=== PATIENT | female | born 1945 | race Caucasian/White ===

== ENCOUNTER → 2017-01-04 | Outpatient (CLI) | payer MEDICARE ==
--- NOTE | 2017-01-04 13:24 | REPMRS ---
Patient History The patient states she had a clinical breast exam in 09/2016. Patient is postmenopausal. Family history of colorectal cancer in paternal uncle at age 50 or over. Reductions of both breasts, 2004. Digital Woman Screen Mammo: January 04, 2017 - Exam #: [id number] Bilateral CC and MLO view(s) were taken. Technologist: Gladys Adams, Technologist Prior study comparison: November 13, 2015, digital woman screen mammo performed at [facility] to [facility]. November 16, 2014, digital woman screen mammo performed at [facility] to [facility]. FINDINGS: There are scattered fibroglandular densities. There is a fairly symmetric fibroglandular pattern in both breasts. There has been no interval development of masses, areas of architectural distortion or clusters of microcalcifications typical of malignancy. ASSESSMENT: BI-RADS/ACR category 2 mammogram. Benign finding(s). Recommendation Routine screening mammogram of both breasts in 1 year (for women over age 40). This mammogram was interpreted with the aid of an FDA-approved computer-aided dectection system. Electronically Signed By: Jorge Curtis MD 01/04/17 [id number]
== END ==
LOC: M WHC 11:10
PROVIDERS: ATTEND Obstetrics & Gynecology
DX: Z12.31 Encounter for screening mammogram for malignant neoplasm of breast (principal)

== ENCOUNTER 2017-10-01 06:43 | Day surgery (SDC) | payer MEDICARE ==
[2017-10-01] MEDS ORDERED: LIDOCAINE 2% INJ 100 MG/5 ML SDV (FOR ANES.) As Ordered (07:00)
[2017-10-01] MEDS ORDERED: PROPOFOL 200 MG/20 ML VIAL As Ordered ×2 (07:00→07:46)
== END 2017-10-01 08:12 | disposition home or self-care (01) ==
LOC: M OPP 06:43
DX: Z12.11 Encounter for screening for malignant neoplasm of colon (principal); Z80.0 Family history of malignant neoplasm of digestive organs; F32.9 Major depressive disorder, single episode, unspecified; F41.9 Anxiety disorder, unspecified; E78.00 Pure hypercholesterolemia, unspecified; H40.9 Unspecified glaucoma; G47.30 Sleep apnea, unspecified; Z99.89 Dependence on other enabling machines and devices; Z41.1 Encounter for cosmetic surgery; Z78.0 Asymptomatic menopausal state
CPT/HCPCS: G0105

== ENCOUNTER → 2018-03-10 | Outpatient (REF) | payer MEDICARE | LOC: M LAB REF 16:09 | DX: N39.0 Urinary tract infection, site not specified (principal) | CPT/HCPCS: 87186 ==

== ENCOUNTER → 2018-04-12 | Outpatient (REF) | payer MEDICARE | LOC: M LAB REF 11:10 | DX: R19.7 Diarrhea, unspecified (principal) | CPT/HCPCS: 87507 ==

== ENCOUNTER → 2018-05-11 | Outpatient (REF) | payer MEDICARE | LOC: M LAB REF 12:09 | DX: R30.0 Dysuria (principal) | CPT/HCPCS: 87086 ==

== ENCOUNTER → 2018-07-08 | Outpatient (REF) | payer MEDICARE | LOC: M LAB REF 15:31 | DX: N39.0 Urinary tract infection, site not specified (principal) | CPT/HCPCS: 87086 ==

== ENCOUNTER → 2019-02-27 | Outpatient (CLI) | payer MEDICARE ==
[~2019-02-27] MED LIST: ATOR1TAB19 PO; CALCTAB93 PO; CO Q100C10 PO; FISH100049 PO; LATA0.0013 OU; LEXA1TAB PO; LUTE6CAP2 PO
--- NOTE | 2019-02-27 15:36 | REPMRS ---
Patient History The patient states she has not had a clinical breast exam in over a year. Family history of colorectal cancer at age 50 or over in paternal uncle. Reductions of both breasts, 2004. 3D TOMOSYNTHESIS WAS PERFORMED. Digital Woman Screen Mammo: February 27, 2019 - Exam #: [id number] Bilateral CC and MLO view(s) were taken. Technologist: Yeni Stallings, Technologist Prior study comparison: January 05, 2018, digital woman screen mammo performed at [facility]. January 04, 2017, digital woman screen mammo performed at [facility] to [facility]. FINDINGS: There are scattered fibroglandular densities. There is a fairly symmetric fibroglandular pattern in both breasts. There has been no interval development of masses, areas of architectural distortion or clusters of microcalcifications typical of malignancy. Assessment: BI-RADS/ACR category 2 mammogram. Benign Findings. Recommendation Routine screening mammogram of both breasts in 1 year (for women over age 40). This mammogram was interpreted with the aid of an FDA-approved computer-aided dectection system. Electronically Signed By: Jorge Curtis MD 02/27/19 [id number]
== END ==
LOC: M WHC 13:44
PROVIDERS: ATTEND Family Medicine
DX: Z12.31 Encounter for screening mammogram for malignant neoplasm of breast (principal); Z80.0 Family history of malignant neoplasm of digestive organs

== ENCOUNTER → 2019-06-01 | Outpatient (REF) | payer MEDICARE | LOC: M LAB REF 16:12 | PROVIDERS: ATTEND Physician Assistant | DX: R30.0 Dysuria (principal) ==

== ENCOUNTER → 2019-07-11 | Outpatient (CLI) | payer MEDICARE ==
[2019-07-11 12:05] LABS: ALBUMIN 3.7 GM/DL (3.2-5.2); ALT/SGPT 34 U/L (12-78); BILIRUBIN,TOTAL 0.6 MG/DL (0.2-1.0); BLOOD UREA NITROGEN 13 MG/DL (7-18); CALCIUM LEVEL 9.4 MG/DL (8.8-10.2); CARBON DIOXIDE LEVEL 29 MEQ/L (21-32); CHLORIDE LEVEL 104 MEQ/L (98-107); CHOLESTEROL LEVEL 137 MG/DL (<200); CHOLESTEROL RISK RATIO 2.446 (<5); CREATININE FOR GFR 0.89 MG/DL (0.55-1.30); GLOMERULAR FILTRATION RATE > 60.0 (>39); GLUCOSE, FASTING 92 MG/DL (70-100); HDL CHOLESTEROL 56 MG/DL (>40); LDL CHOLESTEROL 60 MG/DL (<100); NON-HDL-C 81 MG/DL; POTASSIUM SERUM 4.6 MEQ/L (3.5-5.1); SODIUM LEVEL 138 MEQ/L (136-145); TOTAL PROTEIN 6.6 GM/DL (6.4-8.2); TRIGLYCERIDES LEVEL 104 MG/DL (<150)
[2019-07-11 12:12] LABS: FOLATE 10.1 NG/ML (>5.4); VITAMIN B12 LEVEL 508 PG/ML (247-911)
== END ==
LOC: M LAB 10:41
PROVIDERS: ATTEND Family Medicine
DX: E78.2 Mixed hyperlipidemia (principal); G31.84 Mild cognitive impairment of uncertain or unknown etiology; E55.9 Vitamin D deficiency, unspecified; Z79.899 Other long term (current) drug therapy

== ENCOUNTER → 2020-02-29 | Outpatient (CLI) | payer MEDICARE ==
--- NOTE | 2020-02-29 15:17 | REPMRS ---
Patient History The patient states she had a clinical breast exam in September 2019.Family history of colorectal cancer at age 50 or over in paternal uncle. Reductions of both breasts, 2004. 3D TOMOSYNTHESIS WAS PERFORMED. The [facility] lifetime risk for breast cancer is 4.2%. VOLRAMSESA DENSITY B. Digital Woman Screen Mammo: February 29, 2020 - Exam #: [id number] Bilateral CC and MLO view(s) were taken. Technologist: Kavitha Shaffer, Technologist Prior study comparison: February 27, 2019, bilateral digital woman screen mammo performed at [facility]. January 05, 2018, digital woman screen mammo performed at [facility]. FINDINGS: The breast tissue is heterogeneously dense. This may lower the sensitivity of mammography. There has been no change in the appearance of the mammogram from the prior studies. There is a moderate amount of residual fibroglandular tissue which is fairly symmetric. There is no interval development of dominant mass, areas of architectural distortion, or clustered microcalcification typical of malignancy. Assessment: BI-RADS/ACR category 1 mammogram. Negative Mammogram. Recommendation Routine screening mammogram in 1 year (for women over age 40). This mammogram was interpreted with the aid of an FDA-approved computer-aided dectection system. Electronically Signed By: Jorge Curtis MD 02/29/20 [id number]
== END ==
LOC: M WHC 13:07
PROVIDERS: ATTEND Obstetrics & Gynecology
DX: Z12.31 Encounter for screening mammogram for malignant neoplasm of breast (principal); Z80.0 Family history of malignant neoplasm of digestive organs

== ENCOUNTER → 2020-05-15 | Outpatient (CLI) | payer MEDICARE ==
[2020-05-15 12:35] LABS: BASO # 0.1 10^3/uL (0.0-0.2); EOS # 0.3 10^3/uL (0.0-0.5); EOS % 3.2 % (0.0-3.0); HEMATOCRIT 43.9 % (36.0-47.0); HEMOGLOBIN 14.4 g/dl (12.0-15.5); LYMPH # 1.9 10^3/uL (1.5-5.0); LYMPH % 23.5 % (24.0-44.0); MEAN CORPUSCULAR HEMOGLOBIN 30.3 pg (27.0-33.0); MEAN CORPUSCULAR HGB CONC 32.8 g/dl (32.0-36.5); MEAN CORPUSCULAR VOLUME 92.4 fl (80.0-96.0); MONO # 0.6 10^3/uL (0.0-0.8); MONO % 7.6 % (0.0-5.0); NEUTROPHILS # 5.2 10^3/uL (1.5-8.5); NEUTROPHILS % 64.2 % (36.0-66.0); PLATELET COUNT, AUTOMATED 279 10^3/uL (150-450); RED BLOOD COUNT 4.75 10^6/uL (4.00-5.40); WHITE BLOOD COUNT 8.1 10^3/uL (4.0-10.0)
[2020-05-15 13:58] LABS: ALBUMIN 3.7 GM/DL (3.2-5.2); ALT/SGPT 28 U/L (12-78); BILIRUBIN,TOTAL 0.3 MG/DL (0.2-1.0); BLOOD UREA NITROGEN 16 MG/DL (7-18); CALCIUM LEVEL 9.6 MG/DL (8.8-10.2); CARBON DIOXIDE LEVEL 31 MEQ/L (21-32); CHLORIDE LEVEL 104 MEQ/L (98-107); CREATININE FOR GFR 0.82 MG/DL (0.55-1.30); GLOMERULAR FILTRATION RATE > 60.0 (>39); GLUCOSE, FASTING 100 MG/DL (70-100); POTASSIUM SERUM 4.5 MEQ/L (3.5-5.1); SODIUM LEVEL 140 MEQ/L (136-145); TOTAL PROTEIN 6.7 GM/DL (6.4-8.2)
--- NOTE | 2020-06-20 15:22 | ECGEPIP ---
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
--- NOTE | 2020-06-21 10:57 | REP ---
CHEST X-RAY: TWO-VIEWS HISTORY: Diagnosis is hardware removal. COMPARISON: Chest x-ray 11/21/2009. FINDINGS: The lungs are symmetrically aerated and remain free of infiltrate. Pleural angles are sharp. Heart size is normal. There are degenerative changes in the thoracic spine. There is exaggerated thoracic kyphosis in the lower thoracic spine again noted unchanged related to disc fusion at the thoracolumbar junction. No vertebral body collapse is seen. IMPRESSION: No active cardiopulmonary disease. MTDD
== END ==
LOC: M LAB 11:25
PROVIDERS: ATTEND Podiatrist
DX: Z01.818 Encounter for other preprocedural examination (principal); M79.672 Pain in left foot

== ENCOUNTER → 2020-05-19 | Outpatient (CLI) | payer MEDICARE | LOC: M LABSMTC 08:01 | PROVIDERS: ATTEND Anesthesiology | DX: Z11.59 Encounter for screening for other viral diseases (principal) ==

== ENCOUNTER 2020-05-24 07:38 | Day surgery (SDC) | payer MEDICARE ==
[~2020-05-24] VITALS: Ht 172.7 cm; Wt 93.0 kg
[~2020-05-24 07:38] MED LIST changes: +LIDOCAINE 1% MDV 20ML VIAL SQ PRN
[2020-05-24] MEDS ORDERED: ceFAZolin 2 GM/D5W 50 ML IV BAG (J0690 PER 500MG) As Ordered ONE (08:03)
[2020-05-24] MEDS ORDERED: LR 1,000 ML IV ONE (08:45)
[2020-05-24] MEDS ORDERED: ceFAZolin SOD 2 GM in IV 1 EA IV ONE (08:45)
[2020-05-24] MEDS ORDERED: MIDAZOLAM INJ 2MG/2ML VIAL (J2250 PER 1MG) As Ordered ONE (09:18)
[2020-05-24] MEDS ORDERED: propofoL 200 MG/20 ML VIAL As Ordered ONE ×2 (09:18→10:36)
[2020-05-24] MEDS ORDERED: ONDANSETRON 4MG/2ML VIAL As Ordered ONE (09:18)
[2020-05-24] MEDS ORDERED: LIDOCAINE 2% 100MG/5ML SDV (FOR ANES.) As Ordered ONE (09:18)
[2020-05-24] MEDS ORDERED: fentaNYL 100 MCG/2 ML INJECTION (J3010) As Ordered ONE (09:18)
[2020-05-24] MEDS ORDERED: LIDOCAINE 2% MDV 20ML VIAL As Ordered ONE (09:29)
[2020-05-24] MEDS ORDERED: dexameTHASONE 4 MG/ML 1ML VIAL (J1100 PER 1MG) As Ordered ONE (09:29)
[2020-05-24] MEDS ORDERED: BUPIVACAINE HCL 0.5% 30 ML VIAL As Ordered ONE (09:29)
[2020-05-24] MEDS ORDERED: BACITRACIN PWD 50,000 UNITS VIAL As Ordered ONE (09:30)
[2020-05-24] MEDS ORDERED: NEOSPORIN GU IRRIG 20 ML VIAL As Ordered ONE (09:30)
[2020-05-24] MEDS ORDERED: KETOROLAC 60MG 2ML VIAL As Ordered ONE (10:09)
[2020-05-24 12:00] VITALS: BP 115/63
--- NOTE | 2020-06-20 09:13 | RO ---
DATE OF OPERATION: 05/24/2020 PREOPERATIVE DIAGNOSIS: Painful hardware, dorsal aspect, left foot. POSTOPERATIVE DIAGNOSIS: Painful hardware, dorsal aspect, left foot. PROCEDURE PERFORMED: Removal of hardware, dorsal surface, left foot. ANESTHESIA: Local MAC. SURGEON: Khoi Paredes DPM SUPERVISING BAILIFF: None. ANESTHESIA: Local MAC. IRRIGATION: Dilute bacitracin, neomycin, polymyxin B solution. HEMOSTASIS: Ankle pneumatic tourniquet at 225 mmHg for 21 minutes. DESCRIPTION OF OPERATION: On 05/24/2020, this 75-year-old with female was taken from her hospital room to the operating room and placed on the operating table in supine position. Following the induction of IV sedation and local and regional anesthesia, the left lower extremity was prepped and draped in the usual aseptic manner. Attention was directed to the patient's left foot. There was noted to be a hyperkeratotic lesion over the medial aspect of the hallux and a linear cicatrix without hypertrophy over the oral aspect of the first metatarsal. A 7 cm incision was placed over the first metatarsophalangeal joint over a previous cicatrix. Dissection was carried down to the level of the dorsal plate. The screws were removed. Utilizing a periosteal elevator, the plate was removed from the first metatarsal and the wound was flushed with copious amount of bacitracin, neomycin, polymyxin B solution. A hyperkeratotic lesion was noted on the medial surface of the foot and two semielliptical incisions were placed around this, identifying the screw which was then removed from the proximal phalanx. The wound was flushed with copious amounts of bacitracin, neomycin, polymyxin B solution. The wounds were closed with 4-0 Monocryl in simple interrupted type fashion. The skin incision was coapted and maintained with 3-0 nylon in a simple interrupted type fashion. Dry sterile dressing was applied consisting of Adaptic, 4x4s, 4x4 splints, Elizabeth, Kerlix and Coban. The ankle pneumatic tourniquet was deflated and instantaneous capillary filling time was noted to digits 1-5 of the patient's left foot. The patient having apparently tolerated the procedure well was taken from the OR to the recovery room for further management by the anesthesia department. Postoperative instructions were given upon discharge. KYLEIGH
== END 2020-05-24 13:00 | disposition home or self-care (01) ==
LOC: M SDC 07:38
PROVIDERS: ATTEND Podiatrist
DX: T84.293A Other mechanical complication of internal fixation device of bones of foot and toes, initial encounter (principal); G47.30 Sleep apnea, unspecified; F41.9 Anxiety disorder, unspecified; E78.5 Hyperlipidemia, unspecified; Z79.899 Other long term (current) drug therapy; Y82.8 Other medical devices associated with adverse incidents
CPT/HCPCS: 20680; J0690; J1100; J1885; J2250; J2405; J3010

== ENCOUNTER → 2020-06-05 | Outpatient (CLI) | payer MEDICARE ==
[~2020-06-05] MED LIST changes: -LIDOCAINE 1% MDV 20ML VIAL SQ PRN
== END ==
LOC: M LABSMTC 12:40
PROVIDERS: ATTEND Family Medicine
DX: Z11.59 Encounter for screening for other viral diseases (principal)
CPT/HCPCS: C9803; U0003

== ENCOUNTER → 2021-08-06 | Outpatient (CLI) | payer MEDICARE ==
--- NOTE | 2021-08-06 10:38 | REPMRS ---
Patient History The patient states she has not had a clinical breast exam in over a year. Family history of colorectal cancer at age 50 or over in paternal uncle. Reductions of both breasts, 2004. Tomosynthesis is performed. Volpara breast density is b. [facility] Patient states no breast complaints today. Patient has signed MRS History Sheet. Digital Woman Screen Mammo: August 06, 2021 - Exam #: [id number] Bilateral CC and MLO view(s) were taken. Technologist: Yeni Stallings, Technologist Prior study comparison: February 29, 2020, bilateral digital woman screen mammo performed at [facility]. February 27, 2019, bilateral digital woman screen mammo performed at [facility]. FINDINGS: The breast tissue is heterogeneously dense. This may lower the sensitivity of mammography. There has been no change in the appearance of the mammogram from the prior studies. There is a moderate amount of residual fibroglandular tissue which is fairly symmetric. There is no interval development of dominant mass, areas of architectural distortion, or clustered microcalcification typical of malignancy. Assessment: BI-RADS/ACR category 1 mammogram. Negative Mammogram. Recommendation Routine screening mammogram in 1 year (for women over age 40). This mammogram was interpreted with the aid of an FDA-approved computer-aided dectection system. Electronically Signed By: Jorge Curtis MD 08/06/21 1037
== END ==
LOC: M WHC 09:06
PROVIDERS: ATTEND Family Medicine
DX: Z12.31 Encounter for screening mammogram for malignant neoplasm of breast (principal); Z80.0 Family history of malignant neoplasm of digestive organs

== ENCOUNTER → 2021-12-02 | Outpatient (CLI) | payer MEDICARE ==
[2021-12-02 17:35] LABS: BASO # 0.1 10^3/uL (0.0-0.2); BASO % 0.9 % (0.0-1.0); EOS # 0.2 10^3/uL (0.0-0.5); EOS % 2.1 % (0.0-3.0); HEMATOCRIT 45.5 % (36.0-47.0); HEMOGLOBIN 15.1 g/dl (12.0-15.5); INR 1.05; LYMPH # 2.4 10^3/uL (1.5-5.0); LYMPH % 25.4 % (24.0-44.0); MEAN CORPUSCULAR HEMOGLOBIN 30.6 pg (27.0-33.0); MEAN CORPUSCULAR HGB CONC 33.2 g/dl (32.0-36.5); MEAN CORPUSCULAR VOLUME 92.1 fl (80.0-96.0); NEUTROPHILS # 5.8 10^3/uL (1.5-8.5); NEUTROPHILS % 61.2 % (36.0-66.0); PLATELET COUNT, AUTOMATED 389 10^3/uL (150-450); PROTHROMBIN TIME 14.1 SECONDS (12.7-14.5); RED BLOOD COUNT 4.94 10^6/uL (4.00-5.40); WHITE BLOOD COUNT 9.5 10^3/uL (4.0-10.0)
[2021-12-02 17:36] LABS: PARTIAL THROMBOPLASTIN TIME 34.7 SECONDS (25.9-37.0)
[2021-12-02 17:56] LABS: ALBUMIN 3.7 GM/DL (3.2-5.2); ALT/SGPT 35 U/L (12-78); BILIRUBIN,TOTAL 0.2 MG/DL (0.2-1.0); BLOOD UREA NITROGEN 15 MG/DL (7-18); CALCIUM LEVEL 9.2 MG/DL (8.8-10.2); CARBON DIOXIDE LEVEL 28 MEQ/L (21-32); CHLORIDE LEVEL 105 MEQ/L (98-107); GLOMERULAR FILTRATION RATE > 60.0 (>39); GLUCOSE, FASTING 98 MG/DL (70-100); POTASSIUM SERUM 4.8 MEQ/L (3.5-5.1); SODIUM LEVEL 138 MEQ/L (136-145); TOTAL PROTEIN 6.8 GM/DL (6.4-8.2)
== END ==
LOC: M PLAIMG 14:09
PROVIDERS: ATTEND Nurse Practitioner Family
DX: R07.89 Other chest pain (principal); R05.1 Acute cough

== ENCOUNTER → 2022-04-20 | Outpatient (REF) | payer MEDICARE | LOC: M LAB REF 16:49 | PROVIDERS: ATTEND Nurse Practitioner Family | DX: R35.0 Frequency of micturition (principal) ==

== ENCOUNTER → 2022-09-04 | Outpatient (CLI) | payer MEDICARE | LOC: M WHC 14:20 | PROVIDERS: ATTEND Family Medicine | DX: Z12.31 Encounter for screening mammogram for malignant neoplasm of breast (principal) ==

== ENCOUNTER → 2022-09-29 | Outpatient (CLI) | payer MEDICARE | LOC: M WHC 08:15 | PROVIDERS: ATTEND Family Medicine | DX: Z13.820 Encounter for screening for osteoporosis (principal); M85.851 Other specified disorders of bone density and structure, right thigh; M85.852 Other specified disorders of bone density and structure, left thigh ==